=== PATIENT | female | born 1965 | race Caucasian/White ===

== ENCOUNTER → 2017-05-10 | Outpatient (CLI) | payer OTHER, SELFPAY ==
[~2017-05-10] VITALS: Ht 165.1 cm; Wt 130.2 kg
[~2017-05-10] MED LIST: ASPIR 8181 MG PO; CELEBREX 200 M200 M1 PO; CRESTOR10 MG PO; GLYBURIDE 2.52.5 MG PO; INVOKANA100 MG PO; METFORMIN HCL500 MG PO; NEURONTIN300 MG PO; NORCO 10-325 T1 EACH PO; PRINZIDE 20-251 EACH PO; TOPAMAX 100 MG100 MG PO; VICTOZA0.6 MG/0.1 SUBQ; WELLBUTRIN SR150 MG PO; XANAX 0.25 MG0.25 MG PO
--- NOTE | ~2017-05-10 | HPC ---
[facility] [place] [address] PAIN MANAGEMENT CONSULTATION Name: LEILA MCKEON Room #: [facility].Claus.#: [id number] Admission: 05/10/17 Attend Phys: Chucky Pierre MD Discharge: Date of : 61 Report #: [id number] THIS REPORT FOR: //name// CC: [facility] physician/PCP Mikel Pierre DATE OF SERVICE: 05/10/2017 FOLLOWUP COMPLAINT: "I have a trigger thumb." FOLLOWUP HISTORY: The patient is a 52-year-old female who has been seen in the pain clinic in the past because of lumbar radiculopathy. She has undergone epidural steroid injections and gleaned benefits from these. She returns today indicating that she is now experiencing pain involving her left thumb. She had a similar problem in her right thumb. She underwent an injection in that area and noted improvement. She has noted a swelling in the right thumb under the base of the thumb, when she pushes or pulls her thumb, she can feel a popping sensation. She can feel and has noted a swelling or lump underneath the thumb area. This is where the trigger is noted. She has been experiencing pain in this area and rates the pain as a 10/10 when she is bending her thumb. 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 Sometimes has to manually open her thumb using the opposite hand. PHYSICAL EXAMINATION: Blood pressure is 124/64, pulse 83, respiratory rate 16, room air saturation 97%, height 5 feet 8 inches, weight 130 kilograms. BMI is 47. The patient has pain and discomfort in the left thumb. 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 She rates this pain as problematic. IMPRESSION: 1. Left trigger thumb; had a right trigger thumb in the past which improved after a steroid injection. 2. Lumbar radiculopathy into the left leg, status post surgery and epidural steroid injection stable at this juncture. RECOMMENDATIONS: We discussed treatment options with the patient. Risks and benefits of an injection were discussed. Possible complications which could include infection, increased muscle soreness, increased pain were discussed and the patient elects to proceed. PROCEDURE NOTE: The patient was placed in the exam room. A table was placed before the patient. Her left arm was extended out onto the tray table. Her hand was sterilely prepped with a chlorhexidine solution, [place] [address] PAIN MANAGEMENT CONSULTATION Name: LEILA MCKEON Room #: [facility].#: [id number] Admission: 05/10/17 Attend Phys: Chucky Pierre MD Discharge: Date of : 61 Report #: [id number] dry. A sterile placement of a 25-gauge needle into the area of the darlene was performed. Aspiration did not reveal any blood. The patient did not complain of any pain of a nerve type while the procedure was performed. A total of 1.5 mL of celestone 6 mg per mL was injected with 0.5 mL 0.25% bupivacaine. The patient tolerated the procedure well. There was a resolution of pain. Movement of her thumb back and forth was smooth without evidence of a locking or clicking sensation. The patient's pain had decreased to 0 at the time of discharge. She will follow up in the next couple of weeks. Possibility of another injection if needed would be provided. We would like to thank you for letting us participate in her care. We hope she continues to improve. <ELECTRONICALLY SIGNED> By: Chucky Pierre MD 05/11/17 0820 [id number] Chucky Pierre MD /nt
[2017-05-10 10:53] VITALS: BP 124/64
== END ==
LOC: PAIN 06:48
DX: M65.312 Trigger thumb, left thumb (principal); M54.16 Radiculopathy, lumbar region; I10 Essential (primary) hypertension; Z87.891 Personal history of nicotine dependence